=== PATIENT | female | born 1970 | race Caucasian/White ===

== ENCOUNTER 2019-09-12 00:20 | Outpatient (CLI) | payer OTHER, SELFPAY ==
[2019-09-12 18:56] LABS: SARS-CoV-2 RNA PCR Negative
== END 2019-09-12 00:21 | disposition home or self-care (01) ==
LOC: ANHCOVIDDT 00:20
PROVIDERS: PCP Internal Medicine; Visit Provider Internal Medicine Gastroenterology
DX: Z01.818 Encounter for other preprocedural examination (principal); Z11.59 Encounter for screening for other viral diseases; Z12.11 Encounter for screening for malignant neoplasm of colon
CPT/HCPCS: 87635; C9803; U0003

== ENCOUNTER 2019-09-14 01:33 | Day surgery (SDC) | payer OTHER, SELFPAY ==
[2019-09-06 13:45] VITALS: BMI 44.3
[2019-09-14 08:30] VITALS: BP 132/79; PULSE 82; RESP 18; TEMP 36.3; O2SAT 96
--- NOTE | 2019-09-14 08:32 | WPDANESEPPF ---
Anes - Initial Pre Proc Eval Procedure: Operation Date: 09/14/19 09:30 Proposed Procedures p Screening Colonoscopy - Sami Carter DO Date/Time: 09/14/19 08:32 Surgeon: Sami Carter DO Pre Op Diagnosis: hx colon polyps Patient Data Age: 49 Gender: F Height: 1.6 m Weight: 113.5 kg Allergies Allergy/AdvReac Type Severity Reaction Status Date / Time No Known Allergies Allergy Unknown Unverified 09/14/19 08:31 Home Medications Medication Instructions Recorded Confirmed Type levothyroxine See Rx Instructions .ROUTE .COMPLEX 09/06/19 09/14/19 History losartan 12.5 mg PO DAILY 09/06/19 09/14/19 History metformin 500 mg PO BID 09/06/19 09/06/19 History metoprolol succinate 25 mg PO BID 09/06/19 09/14/19 History bupropion HCl 300 mg PO QAM 09/14/19 09/14/19 History citalopram 40 mg PO DAILY 09/14/19 09/14/19 History glimepiride 4 mg PO DAILY 09/14/19 09/14/19 History Patient hx anesthesia problems: none Family hx anesthesia problems: none PMFSH Past Medical History Medical History (Updated 09/14/19 @ 08:34 by Chuck Whiteside MD) Anxiety Cardiac arrhythmia SVT - ABLATIONS X 2 Diabetes HTN (hypertension) Hypothyroidism Morbid obesity with BMI of 40.0-44.9, adult JOON (obstructive sleep apnea) Anes - Eval Final PreProcedure Day of Procedure 09/14/19 08:32 Patient weight: obese Heart: regular rate and rhythm Lungs: clear to auscultation and normal air movement Airway: Mallampati scale class II Neurological: alert and oriented Last oral intake: >/= 8 hours ASA classification: III Emergent: no Anesthetic plan: proceed Anesthesia type and monitoring: general GIVS Informed Consent: The patient's anesthetic plan and its attendant risks and benefits were discussed with the patient/family/POA. Questions were solicited and answers provided to the satisfaction of the patient/family/POA.
[2019-09-14] MEDS: LACTATED RINGERS 1,000 ML 150 ML IV CONT (08:53)
[2019-09-14 08:57] LABS: Glucose Point of Care 120 (65-105)
--- NOTE | 2019-09-14 09:13 | PM.IMHP ---
H&P: HPI History of Present Illness Chief complaint: hx colon polyps Narrative: Reason for visit colonoscopy. This very pleasant lady seen in consultation at the request the primary. Impression: This very pleasant lady had a recent colonoscopy about a year ago. Mild dysplasia was noted in the cecum. She is here for follow-up colonoscopy for screening and surveillance. For past medical history. Recommendation: Colonoscopy. History: This very pleasant lady is here for follow-up colonoscopy. Previous colonoscopy revealed dysplasia in the cecum. Colonoscopic examination, however revealed only minimal inflammation. the only GI symptoms the patient experiences is occasional emesis during times of urgent defecation. This usually occurs when she is at school. Physical examination: General: very pleasant patient in no acute distress. HEENT: Head was normocephalic sclerae is clear mouth without masses neck was supple. Heart: Rate rhythm regular without S3 or S4. Lungs: CTA. Abdomen: Soft with no guarding or rigidity. Bowel sounds were active. Neurologic: Cranial nerves 2 through 12 intact. No focal defects. No clonus. Musculoskeletal system: Revealed no joint tenderness or swelling no muscle atrophy. Extremities: Reveal no significant edema. Skin: Warm and dry with normal turgor. Mental status: intact. Patient is alert and oriented. Review of Systems Review of Systems: All systems reviewed & are unremarkable except as noted in HPI and below PMFSH Past Medical History Medical History (Updated 09/14/19 @ 09:12 by Sami Carter DO) Anxiety Cardiac arrhythmia SVT - ABLATIONS X 2 Diabetes HTN (hypertension) Hypothyroidism Morbid obesity with BMI of 40.0-44.9, adult JOON (obstructive sleep apnea) Surgical History Surgical History (Updated 09/14/19 @ 09:12 by Sami Carter DO) H/O cardiac radiofrequency ablation H/O colonoscopy H/O dilation and curettage H/O: hysterectomy Supracervical Previous section x 3 S/P carpal tunnel release Meds Home Medications and Allergies Home Medications Medication Instructions Recorded Confirmed Type levothyroxine See Rx Instructions .ROUTE .COMPLEX 09/06/19 09/14/19 History losartan 12.5 mg PO DAILY 09/06/19 09/14/19 History metformin 500 mg PO BID 09/06/19 09/14/19 History metoprolol succinate 25 mg PO BID 09/06/19 09/14/19 History bupropion HCl 300 mg PO QAM 09/14/19 09/14/19 History citalopram 40 mg PO DAILY 09/14/19 09/14/19 History glimepiride 4 mg PO DAILY 09/14/19 09/14/19 History Allergies Allergy/AdvReac Type Severity Reaction Status Date / Time No Known Allergies Allergy Unknown Unverified 09/14/19 08:31 Vital Signs Vital Signs - 24 hr 09/14/19 08:30 Temperature 36.3 C L Pulse Rate 82 Respiratory Rate 18 Blood Pressure 132/79 Pulse Oximetry 96
[2019-09-14 09:44] VITALS: BP 107/55; PULSE 75; RESP 15; O2SAT 97
[2019-09-14 09:54] VITALS: BP 113/66; PULSE 73; RESP 12; O2SAT 98
[2019-09-14 10:04] VITALS: BP 121/59; PULSE 73; RESP 15; O2SAT 99
== END 2019-09-14 10:19 | disposition home or self-care (01) ==
PROVIDERS: PCP Internal Medicine; Visit Provider Internal Medicine Gastroenterology
PROC: 0DJD8ZZ Inspection of Lower Intestinal Tract, Via Natural or Artificial Opening Endoscopic (ICD-10-PCS; CPT 45378; principal; 2019-09-14 09:30)
DX: Z12.11 Encounter for screening for malignant neoplasm of colon (principal); K52.89 Other specified noninfective gastroenteritis and colitis; Z86.010 Personal history of colon polyps; E11.9 Type 2 diabetes mellitus without complications; I10 Essential (primary) hypertension; E03.9 Hypothyroidism, unspecified; E66.01 Morbid (severe) obesity due to excess calories; Z68.41 Body mass index [BMI] 40.0-44.9, adult; G47.33 Obstructive sleep apnea (adult) (pediatric); F41.9 Anxiety disorder, unspecified; I47.1 Supraventricular tachycardia
CPT/HCPCS: 45380; 88305; J2001; J2704; J7120

== ENCOUNTER 2020-04-30 16:32 | Outpatient (RCR) | payer OTHER, SELFPAY ==
--- NOTE | 2020-04-30 17:53 | PTOPEVAL ---
Thank you for referring Sumi Brice to [facility].? The patient is scheduled to be seen for therapy? __3__x/week for 12 visits. Please review, sign, date and return this plan of care LYDIA. I agree with and certify that the following plan of care is medically necessary. Referring Physician Date Admitting Provider: Attending Provider: Lauri Llanes MD Referring Provider: *PT Outpatient Evaluation Start: 04/30/20 16:44 Freq: Status: Active Protocol: Document 04/30/20 16:45 ACR (Rec: 04/30/20 17:52 ACR [id number]) Therapy Assessment Status Assessment Status Assessment Status Evaluation Outpatient Past Medical History Neurological History Hx Neurological Disorders No Significant History Cardiovascular History Hx Cardiac Arrhythmia Yes: SVT Hx Hypertension Yes Hx Other Cardiac Disorders Yes: ABLATIONS X 2 Respiratory History Hx Sleep Apnea Yes Gastrointestinal History Hx Polyps Yes Genitourinary History Hx Genitourinary Disorders No Significant History Musculoskeletal History Hx Orthopedic Surgery Yes: BILATERAL CARPAL TUNNEL Hematological History Hx Hematological Disorders No Significant History Endocrine History Hx Diabetes Yes Hx Hypothyroidism Yes HEENT History Hx HEENT Disorders No Significant History Integumentary History Hx Skin Disorders No Significant History Reproductive History Hx Section Yes: X3 Hx Hysterectomy Yes Psychosocial History Hx Anxiety Yes Pain History History of Any Previous or Ongoing No Significant History Instance of Pain Anesthesia History Hx Post-Op Nausea/Vomiting Yes: DRY HEAVES Evaluation Information Problem Diagnosis L shoulder pain Onset 04/22/20 Subjective Information Patient states that she fell Query Text:As Reported By Patient/ forward last week, but her L Family arm progressively got in more pain throughout the day. She states that she is not sore anywhere else from the fall, except the L arm. She states the arm was originally in the most pain, but it has gotten a bit better and the pain is just in the shoulder. She states that reaching up and out, opening medicine containers, and lifting her arm to drive are some of the most difficult a
--- NOTE | 2020-06-04 17:58 | PTOPEVAL ---
Thank you for referring Sumi Brice to [facility].? The patient is scheduled to be seen for therapy? ____x/week for ___ weeks. Please review, sign, date and return this plan of care LYDIA. I agree with and certify that the following plan of care is medically necessary. Referring Physician Date Admitting Provider: Attending Provider: Lauri Llanes MD Referring Provider: *PT Outpatient Evaluation Start: 04/30/20 16:44 Freq: Status: Active Protocol: Document 06/04/20 16:58 ACR (Rec: 06/04/20 17:58 ACR [id number]) Therapy Assessment Status Assessment Status Assessment Status Discharge Outpatient Past Medical History Neurological History Hx Neurological Disorders No Significant History Cardiovascular History Hx Cardiac Arrhythmia Yes: SVT Hx Hypertension Yes Hx Other Cardiac Disorders Yes: ABLATIONS X 2 Respiratory History Hx Sleep Apnea Yes Gastrointestinal History Hx Polyps Yes Genitourinary History Hx Genitourinary Disorders No Significant History Musculoskeletal History Hx Orthopedic Surgery Yes: BILATERAL CARPAL TUNNEL Hematological History Hx Hematological Disorders No Significant History Endocrine History Hx Diabetes Yes Hx Hypothyroidism Yes HEENT History Hx HEENT Disorders No Significant History Integumentary History Hx Skin Disorders No Significant History Reproductive History Hx Section Yes: X3 Hx Hysterectomy Yes Psychosocial History Hx Anxiety Yes Pain History History of Any Previous or Ongoing No Significant History Instance of Pain Anesthesia History Hx Post-Op Nausea/Vomiting Yes: DRY HEAVES Evaluation Information Problem Diagnosis L shoulder pain Onset 04/22/20 Cause 25% disability on quick dash Subjective Information Patient states that she doesnt Query Text:As Reported By Patient/ have much pain when she is Family using her shoulder, but it bothers her when she goes out to the side or over her head. She states that since the beginning of therapy she feels she has improved 75-80%. 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
== END 2020-06-04 09:13 | disposition home or self-care (01) ==
LOC: CHSPT 16:32
PROVIDERS: PCP Internal Medicine; Visit Provider Internal Medicine
DX: M25.512 Pain in left shoulder (principal)
CPT/HCPCS: 97014; 97110; 97161; G0283

== ENCOUNTER 2020-06-24 11:00 | Outpatient (CLI) | payer OTHER, SELFPAY ==
--- NOTE | ~2020-06-24 | XR_ITS ---
EXAMINATION: XR shoulder LT min 2V DATE: 06/24/2020 11:36 INDICATION: Left shoulder pain. TECHNIQUE: 4 views of left shoulder were obtained. COMPARISON: None. FINDINGS: Bone alignment is normal. No fracture. There is mild osteoarthritis of glenohumeral joint a nd acromioclavicular joint. IMPRESSION: 1. Mild polyarticular osteoarthritis. Reviewed, dictated and finalized at location A.
== END 2020-06-24 11:01 | disposition home or self-care (01) ==
LOC: CHSLAB 11:02
PROVIDERS: PCP Internal Medicine; Visit Provider Internal Medicine
DX: M25.512 Pain in left shoulder (principal)
CPT/HCPCS: 73030

== ENCOUNTER 2020-08-31 08:15 | Outpatient (CLI) | payer OTHER, SELFPAY ==
--- NOTE | ~2020-08-31 | MR_ITS ---
EXAMINATION: MR shoulder LT wo con DATE: 08/31/2020 10:31 INDICATION: Left shoulder pain and limited range of motion TECHNIQUE: Magnetic resonance imaging (MRI) of the left shoulder was performed without intravenous co ntrast. Sequences included axial PD-weighted FS FSE, coronal oblique PD-weighted FS FSE, coronal obli que T2-weighted FS FSE, sagittal PD-weighted FS FSE, and sagittal T1-weighted SE. COMPARISON: None. FINDINGS: Coracoacromial arch: The acromion undersurface is curved in morphology (type II). The coracoacromial ligament is normal. M ild acromioclavicular osteoarthritis. Rotator cuff: Moderate supraspinatus and mild infraspinatus tendinopathy. Tiny intrasubstance tear at the superior facet footplate of the anterior supraspinatus tendon measuring 2 mm AP and involving no greater than one third of the tendon thickness. Subscapularis and teres minor tendons are normal. Normal rotator c uff muscle bulk and signal. Biceps tendon, glenoid labrum and glenohumeral cartilage: Long head of the biceps tendon is normal. Glenohumeral cartilage is normal. There is a tear of the david perior to posterior superior glenoid labrum beginning anteriorly at the 1:00 position and extending p osteriorly to the 10:00 position. Fluid: Physiologic amount of fluid in the glenohumeral joint and biceps tendon sheath. No loose osteochondra l bodies. There is fluid in the subacromial/subdeltoid bursa consistent with mild to moderate bursiti s. Bones: Bone alignment is normal. No fracture or pathologic marrow replacing process. IMPRESSION: 1. Moderate supraspinatus and mild infraspinatus tendinopathy with tiny mild partial-thickness intras ubstance tear at the insertion of the anterior supraspinatus tendon. 2. SLAP tear of the superior to posterior superior right labrum. 3. Mild to moderate subacromial/subdeltoid bursitis. Reviewed, dictated and finalized at location A. IMPRESSION: 1. Moderate supraspinatus and mild infraspinatus tendinopathy with tiny mild pa rtial-thickness intrasubstance tear at the insertion of the anterior supraspina tus tendon. 2. SLAP tear of the superior to posterior superior right labrum. 3. Mild to moderate subacromial/subdeltoid bursitis.
== END 2020-08-31 08:16 | disposition home or self-care (01) ==
PROVIDERS: PCP Internal Medicine; Visit Provider Orthopaedic Surgery
DX: S46.012A Strain of muscle(s) and tendon(s) of the rotator cuff of left shoulder, initial encounter (principal)
CPT/HCPCS: 73221

== ENCOUNTER 2020-10-07 10:10 | Outpatient (CLI) | payer OTHER, SELFPAY ==
--- NOTE | 2020-10-07 10:24 | ECG_ITS ---
Measurements Intervals [place] Rate: 85 P: 39 CO: 162 QRS: 4 QRSD: 100 T: -4 QT: 384 QTc: 458 Interpretive Statements SINUS RHYTHM DELAYED PRECORDIAL R/S TRANSITION CONSIDER INFERIOR INFARCT, AGE INDETERMINATE BORDERLINE T WAVE ABNORMALITY- ANTEROLATERAL LEADS ABNORMAL ECG Electronically Signed On 10-07-2020 13:36:33 CDT by Justin Marques D.O.
[2020-10-07 12:10] LABS: Anion Gap 11 mmol/L (8-16); Blood Urea Nitrogen 14 mg/dL (7-17); Calcium 9.7 mg/dL (8.4-10.2); Carbon Dioxide 25 mmol/L (22-30); Chloride 100 mmol/L (98-107); Estimated Glomerular Filt Rate > 60; Glucose 205 mg/dL (65-110); Potassium 4.3 mmol/L (3.4-5.0); Sodium 136 mmol/L (137-145)
== END 2020-10-07 10:11 | disposition home or self-care (01) ==
LOC: ANHSURGERY 10:13
PROVIDERS: Anesthesiology; PCP Internal Medicine; Visit Provider Orthopaedic Surgery
DX: Z01.818 Encounter for other preprocedural examination (principal); E11.9 Type 2 diabetes mellitus without complications; R94.31 Abnormal electrocardiogram [ECG] [EKG]
CPT/HCPCS: 36415; 80048; 93005

== ENCOUNTER 2020-10-10 01:49 | Day surgery (SDC) | payer OTHER, SELFPAY ==
[2020-10-02 14:06] VITALS: BMI 38.6
--- NOTE | 2020-10-03 14:58 | PM.IMHP ---
H&P: HPI History of Present Illness Date/Time: 10/03/20 14:58 Chief Complaint: Left shoulder pain Narrative: 50-year-old woman with injury to left shoulder April 22, 2020. Continues to have pain over the anterior aspect and difficulty with using the arm, lifting and overhead work. MRI demonstrates biceps and labral tears with inflammatory changes. Patient has failed conservative treatment and presents now for operative treatment. Review of Systems Constitutional: Constitutional: Denies fever(s) Eyes: Eyes: Denies blurry vision ENT: Reports Normal hearing present Cardiovascular: Cardiovascular: Denies chest pain and Denies dyspnea Respiratory: Respiratory: Denies dyspnea and Denies wheezing Gastrointestinal: Gastrointestinal: Denies abdominal pain Genitourinary: Genitourinary: Denies urinary urgency Musculoskeletal: Musculoskeletal: Reports as per HPI and Denies numbness Integumentary/Breasts: Skin/Breast: Denies changing lesions and Denies sores Neurologic: Reports Normal hearing present, Denies behavioral changes, Denies confusion, Denies numbness and Denies convulsions Psychiatric: Psychiatric: Denies behavioral changes, Denies confusion and Denies hallucinations Endocrine: Endocrine: Denies heat intolerance Hematologic/Lymphatic: Hematologic/Lymphatic: Denies easy bleeding Allergic/Immunologic: Allergic/Immunologic: Denies wheezing PMFSH Past Medical History Medical History Abnormality of heart beat Anxiety Cardiac arrhythmia SVT - ABLATIONS X 2 Chills COVID-19 Depression Diabetes Fever HTN (hypertension) Hypothyroidism Impingement syndrome, shoulder, left Labral tear of long head of left biceps tendon Morbid obesity with BMI of 40.0-44.9, adult JOON (obstructive sleep apnea) PVC (premature ventricular contraction) Rotator cuff tear, left Strain of left shoulder Wears glasses Surgical History Surgical History H/O cardiac radiofrequency ablation H/O colonoscopy H/O dilation and curettage H/O: hysterectomy Supracervical Previous section x 3 S/P carpal tunnel release Family History Family History Mother Hypertension Depression COPD (chronic obstructive pulmonary disease) Kidney stones Arthritis High cholesterol Father Heart disease Diabetes mellitus Pancreatic cancer High cholesterol Other Asthma Social History Social History Smoking status: Never smoker Second hand tobacco smoke exposure: No Alcohol intake: never Substance use: never Substance use type: does not use Gender identity (if verbalized by the patient): Female Spiritual care concerns: No Meds Home Medications and Allergies Home Medications Medication Instructions Recorded Confirmed Type levothyroxine See Rx Instructions .ROUTE .COMPLEX 09/06/19 10/02/20 History losartan 12.5 mg PO DAILY 09/06/19 10/02/20 History metformin 1,000 mg PO BID 09/06/19 10/02/20 History bupropion HCl 300 mg PO HS 09/14/19 10/02/20 History citalopram 40 mg PO HS 09/14/19 10/02/20 History melatonin 10 mg PO HS PRN 10/02/20 10/02/20 History Allergies Allergy/AdvReac Type Severity Reaction Status Date / Time No Known Allergies Allergy Unknown Verified 10/02/20 14:37 Exam Const: General: healthy appearing; No in distress or confusion Orientation/consciousness: oriented to person, oriented to place, oriented to time and No confusion HENMT: Head: normal to inspection, normocephalic and atraumatic Eyes: Conjunctivae: conjunctivae normal Sclera: sclerae normal Neck: Neck: supple and nontender Resp: Effort & Inspection: normal respiratory effort and no audible wheezes Cardio: Rate: regular rate Rhythm: regular rhythm Skin: General skin exam: no rashes or lesi
--- NOTE | 2020-10-09 15:03 | WPDANESEPPF ---
Anes - Initial Pre Proc Eval Procedure: Operation Date: 10/10/20 11:30 Proposed Procedures p Left Shoulder Arthroscopy with Debridement, Bicep Tenodesis, Acromioplasty - Farhna Vargas MD Date/Time: 10/09/20 15:03 Surgeon: Farhan Vargas MD Pre Op Diagnosis: left shoulder pain, biceps tendonitis Patient Data Age: 50 Gender: F Height: 1.6 m Weight: 98.88 kg Allergies Allergy/AdvReac Type Severity Reaction Status Date / Time No Known Allergies Allergy Unknown Verified 10/10/20 10:13 Home Medications Medication Instructions Recorded Confirmed Type levothyroxine See Rx Instructions .ROUTE .COMPLEX 09/06/19 10/10/20 History losartan 12.5 mg PO DAILY 09/06/19 10/10/20 History metformin 1,000 mg PO BID 09/06/19 10/10/20 History bupropion HCl 300 mg PO HS 09/14/19 10/10/20 History citalopram 40 mg PO HS 09/14/19 10/10/20 History melatonin 10 mg PO HS PRN 10/02/20 10/10/20 History hydrocodone-acetaminophen 1 tablet PO Q6H PRN #30 tablet 10/10/20 Rx ondansetron 8 mg PO Q8H PRN #10 tablet 10/10/20 Rx Patient hx anesthesia problems: none Family hx anesthesia problems: none PMFSH Past Medical History Medical History Abnormality of heart beat Anxiety Cardiac arrhythmia SVT - ABLATIONS X 2 Chills COVID-19 Depression Diabetes Fever HTN (hypertension) Hypothyroidism Impingement syndrome, shoulder, left Labral tear of long head of left biceps tendon Morbid obesity with BMI of 40.0-44.9, adult JOON (obstructive sleep apnea) PVC (premature ventricular contraction) Rotator cuff tear, left Strain of left shoulder Wears glasses Surgical History Surgical History H/O cardiac radiofrequency ablation H/O colonoscopy H/O dilation and curettage H/O: hysterectomy Supracervical Previous section x 3 S/P carpal tunnel release Family History Family History Mother Hypertension Depression COPD (chronic obstructive pulmonary disease) Kidney stones Arthritis High cholesterol Father Heart disease Diabetes mellitus Pancreatic cancer High cholesterol Other Asthma Social History Social History Second hand tobacco smoke exposure: No Alcohol intake: never Substance use: never Substance use type: does not use Living arrangements: with family Gender identity (if verbalized by the patient): Female Spiritual care concerns: No Anes - Eval Final PreProcedure Day of Procedure 10/09/20 15:03 Patient weight: obese Heart: regular rate and rhythm Lungs: clear to auscultation and normal air movement Airway: Mallampati scale class II Neurological: alert and oriented Last oral intake: >/= 8 hours ASA classification: III Emergent: no Anesthetic plan: proceed Anesthesia type and monitoring: general ETT and standard monitoring Informed Consent: The patient's anesthetic plan and its attendant risks and benefits were discussed with the patient/family/POA. Questions were solicited and answers provided to the satisfaction of the patient/family/POA.
[2020-10-10] VITALS (12 sets, daily range): BP systolic 112–186; BP diastolic 46–102; PULSE 88–100; RESP 12–20; TEMP 36.3–36.7; O2SAT 92–100
--- NOTE | 2020-10-10 07:01 | WPDHPUPDATE1 ---
History and Physical Update Update Date/Time: 10/10/20 07:01 History and Physical has been reviewed, including an updated exam of the patient. There are NO changes in the patient's condition. Risks, benefits, and alternatives have been discussed and questions answered. Patient agrees to proceed with procedure.
--- NOTE | 2020-10-10 10:29 | WPDANESPNB ---
Anes - Peripheral Nerve Block Date/Time: 10/10/20 10:29 I have discussed with the patient/family/POA the placement of a peripheral nerve block for post-operative pain management, including associated risks, benefits, complications, and side effects. Alternative methods of post-operative analgesia were detailed. Questions were solicited and answers provided to the satisfaction of the patient/family/POA. Time-Out: A pre-procedural Time-Out was completed immediately before starting the procedure and confirmed: Patient Identification, Site, Procedure, Patient Position and the Availability of Requisite Equipment. Clinical Indications: Acute post-operative pain management requested by the operative surgeon. Nerve Block Insertion Note Anes-nerve block: interscalene left Patient position: supine Skin prep: chlorhexidine Needle: 22 gauge, stimulating, insulated echogenic needle. Needle length: 50 mm Technique: ultrasound Injectate: bupivacaine 0.5% with epi 5 mcg/ml (30cc- no epi) Observations: tolerated well Complications: none Procedure start time:: 1106 Procedure end time:: 1111
[2020-10-10] MEDS: LACTATED RINGERS 1,000 ML 30 ML IV CONT ×2 (10:50→13:25)
[2020-10-10] MEDS: KETOROLAC 15 MG/ML VIAL (*BKC) IV PUSH (10:51)
[2020-10-10] MEDS: ACETAMINOPHEN 500 MG TABLET 1000 MG PO (10:51)
[2020-10-10] MEDS: ceFAZolin 2 GM/D5W 50 ML 2 GM/50 ML BAG IVPB (11:12)
[2020-10-10] MEDS: BUPIVACAINE/EPINEPHRINE 0.5% 30 ML VIAL 10 ML INFILTRATE (12:42)
--- NOTE | 2020-10-10 13:41 | W.PM.PROC2 ---
Procedure Note - Detailed Date of Procedure 10/10/20 Pre-op Diagnosis left shoulder pain, biceps tendonitis Post-op Diagnosis same Procedure Performed Left shoulder arthroscopy with extensive debridement, acromioplasty, biceps tenodesis. 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 MRI shows partial tear of the biceps tendon and the labrum as well as inflammatory changes and subacromial bursitis. She has failed conservative treatment with physical therapy, home exercises, anti-inflammatories. She presents now for operative treatment. Findings Left shoulder shows grade 1-2 chondromalacia of the humeral head and grade 1 chondromalacia of the glenoid articular surface. Partial tear of the biceps tendon anchor at the labrum. Full tear of the superior labrum with degenerative change. Inflammatory changes with synovitis and capsulitis. Partial articular sided fraying of the insertion of the rotator cuff. Intact rotator cuff footprint. Inflammatory tissue subacromial bursa with subacromial spur. Description of Procedure What was done: Patient identified in the preoperative holding. Informed consent given. Operative extremity marked. Patient received intravenous antibiotics. Patient brought to the operating room where underwent general anesthetic by anesthesia team. Positioned Beach chair position operating room table. careful securing of the head and neck area performed. Padding for the bony prominences ensured. Time-out performed confirming the patient, site of the surgery and the plan. Standard arthroscopy portals made for the left shoulder. 18 gauge spinal needle used for the posterior portal location with infiltration of the shoulder joint with normal saline. Eleven blade knife used to incise the skin and blunt penetration of the capsule. Camera and inflow started through this portal and the below findings were noted. Anterior portal established with 18 gauge spinal needle for positioning followed by an 11 blade knife for the skin and blunt penetration of the capsule. 4.7 mm shaver introduced and a extensive debridement of the shoulder joint was performed including the articular surface of the glenoid and the humeral head, debridement of the labrum as well as the synovial tissue that was hypertrophic and the undersurface of the rotator cuff insertion. The debridement was completed with the arthroscopic Wand. The Wand was then used to release the biceps tendon the anchor from the labrum. Irrigation ran through the joint and suctioned out. Instruments removed and skin closed with 3 Monocryl interrupted subcuticular stitches and glue. A camera was then positioned in the subacromial space. Direct lateral portal made with 11 blade knife for the skin and blunt penetration of the soft tissue. Bursectomy performed. Shaver then used to resect the inferior aspect of the acromion including the acromial spur. 2 to 3 mm of bone was resected. Bleeding points were coagulated and irrigation run through the subacromial space and suctioned out. Portals closed with 3 Monocryl interrupted suture and glue. Biceps tenodesis was then performed. Longitudinal incision made in the axillary fold with a 10 blade knife. Hemostasis controlled electrocautery. Careful dissection carried down to the pectoralis which was retracted superiorly. The short head of the biceps was retracted medially which allowed exposure of the proximal humerus and the biceps tendon. Biceps tendon was identified and brought out of the wound. A whip stitch was placed into this. A 3.2 mm drill hole was then placed in the proximal humerus and the anchor but was placed into the hole and secured with the whip stitch placed through the button. Good fixation of the tendon and good tension was noted. Wound thoroughly irrigated and subcutaneous tissue closed with 3 Monocryl interrupted suture. Skin approxima
[2020-10-10 13:52] LABS: Glucose Point of Care 163 mg/dl (65-105)
== END 2020-10-10 16:04 | disposition home or self-care (01) ==
PROVIDERS: PCP Internal Medicine; Visit Provider Orthopaedic Surgery
PROC: (CPT 29805; principal; 2020-10-10 11:30)
DX: S46.112A Strain of muscle, fascia and tendon of long head of biceps, left arm, initial encounter (principal); S46.912A Strain of unspecified muscle, fascia and tendon at shoulder and upper arm level, left arm, initial encounter; M75.42 Impingement syndrome of left shoulder; M75.52 Bursitis of left shoulder; M94.212 Chondromalacia, left shoulder; M65.812 Other synovitis and tenosynovitis, left shoulder; X58.XXXA Exposure to other specified factors, initial encounter; G89.18 Other acute postprocedural pain; I10 Essential (primary) hypertension; E11.9 Type 2 diabetes mellitus without complications; E03.9 Hypothyroidism, unspecified; G47.33 Obstructive sleep apnea (adult) (pediatric); F41.8 Other specified anxiety disorders; Z86.16 Personal history of COVID-19; Z79.84 Long term (current) use of oral hypoglycemic drugs; E66.9 Obesity, unspecified; Z68.38 Body mass index [BMI] 38.0-38.9, adult
CPT/HCPCS: 64415; 29823; 29828; 82948; A4565; A9270; J0690; J1100; J1885; J2250; J2405; J2704; J2710; J3010; J7120

== ENCOUNTER 2020-10-21 08:06 | Outpatient (CLI) | payer OTHER, SELFPAY ==
--- NOTE | ~2020-10-21 | XR_ITS ---
XR shoulder LT min 2V DATE: 10/21/2020 08:27 INDICATION: Limited range of motion of left shoulder TECHNIQUE: 3 views COMPARISON: 08/31/2020 left shoulder MR examination /07/2020 left shoulder FINDINGS: There is diffuse osteopenia. Normal alignment at the acromioclavicular and glenohumeral joints with minimal osteoarthritis at the glenohumeral joint. No fracture, dislocation, periosteal reaction or bone destruction or abnormal sof t tissue calcification. IMPRESSION: Osteopenia Mild degenerative change Reviewed, dictated and finalized at location B.
== END 2020-10-21 08:07 | disposition home or self-care (01) ==
LOC: CHSIMG 08:09
PROVIDERS: PCP Internal Medicine; Visit Provider Orthopaedic Surgery
DX: Z47.89 Encounter for other orthopedic aftercare (principal)
CPT/HCPCS: 73030

== ENCOUNTER 2020-10-28 09:56 | Outpatient (RCR) | payer OTHER, SELFPAY ==
--- NOTE | 2020-10-28 11:02 | PTOPEVAL ---
Thank you for referring Sumi Brice to [facility].? The patient is scheduled to be seen for therapy? ____x/week for ___ weeks. Please review, sign, date and return this plan of care LYDIA. I agree with and certify that the following plan of care is medically necessary. Referring Physician Date Admitting Provider: Attending Provider: Farhan Vargas MD Referring Provider: *PT Outpatient Evaluation Start: 10/28/20 09:29 Freq: Status: Active Protocol: Document 10/28/20 09:55 ACR (Rec: 10/28/20 11:02 ACR [id number]) Therapy Assessment Status Assessment Status Assessment Status Evaluation Outpatient Past Medical History Neurological History Hx Neurological Disorders No Significant History Cardiovascular History Hx Cardiac Arrhythmia Yes: SVT Hx Hypertension Yes Hx Other Cardiac Disorders Yes: ABLATIONS X 2 Respiratory History Hx Other Respiratory Disorders Yes: Covid positive in 2019 Gastrointestinal History Hx Gastroesophageal Reflux Disease Yes Genitourinary History Hx Genitourinary Disorders No Significant History Musculoskeletal History Hx Other Musculoskeletal Disorders Yes: Left shoulder pain Hematological History Hx Hematological Disorders No Significant History Endocrine History Hx Diabetes Yes Hx Hypothyroidism Yes HEENT History Hx HEENT Disorders No Significant History Integumentary History Hx Skin Disorders No Significant History Reproductive History Hx Section Yes: X3 Hx Hysterectomy Yes Psychosocial History Hx Anxiety Yes Pain History History of Any Previous or Ongoing No Significant History Instance of Pain Anesthesia History Hx Post-Op Nausea/Vomiting Yes: DRY HEAVES Evaluation Information Problem Diagnosis L shoulder bicep tenodesis Onset 10/10/20 Subjective Information Patient states that she Query Text:As Reported By Patient/ underwent a bicep tenodesis on Family 10/10/20 and she got some arthritis cleaned out as well. She states she is only taking ibprofen for the pain, and occasionally oxydone if the pain is bad. She does not have to wear the sling, but occasionally does if it is hurting. The patient states the pain is keeping her up at night. Patient states that she has difficulty with anything using her
--- NOTE | 2020-12-12 18:05 | PTOPEVAL ---
Thank you for referring Sumi Brice to [facility].? The patient is scheduled to be seen for therapy? ____x/week for ___ weeks. Please review, sign, date and return this plan of care LYDIA. I agree with and certify that the following plan of care is medically necessary. Referring Physician Date Admitting Provider: Attending Provider: Farhan Vargas MD Referring Provider: *PT Outpatient Evaluation Start: 10/28/20 09:29 Freq: Status: Active Protocol: Document 12/12/20 17:00 ACR (Rec: 12/12/20 17:57 ACR [id number]) Therapy Assessment Status Assessment Status Assessment Status Discharge Outpatient Past Medical History Neurological History Hx Neurological Disorders No Significant History Cardiovascular History Hx Cardiac Arrhythmia Yes: SVT Hx Hypertension Yes Hx Other Cardiac Disorders Yes: ABLATIONS X 2 Respiratory History Hx Other Respiratory Disorders Yes: Covid positive in 2019 Gastrointestinal History Hx Gastroesophageal Reflux Disease Yes Genitourinary History Hx Genitourinary Disorders No Significant History Musculoskeletal History Hx Other Musculoskeletal Disorders Yes: Left shoulder pain Hematological History Hx Hematological Disorders No Significant History Endocrine History Hx Diabetes Yes Hx Hypothyroidism Yes HEENT History Hx HEENT Disorders No Significant History Integumentary History Hx Skin Disorders No Significant History Reproductive History Hx Section Yes: X3 Psychosocial History Hx Anxiety Yes Pain History History of Any Previous or Ongoing No Significant History Instance of Pain Anesthesia History Hx Post-Op Nausea/Vomiting Yes: DRY HEAVES Pain Assessment Timing of Pain Assessment Timing of Pain Assessment Assessment Pain Scale Pain Scale Used Numeric (1 - 10) Self Report Pain Assessment Left Shoulder(s) Reported Pain Level 0 Greatest Pain Intensity 2 Pain Score Pain Score 0: Self Report Upper Extremity Range of Motion Scapular/ Shoulder Range of Motion Left Shoulder Flexion - Active 154 Shoulder Abduction - Active 135 Shoulder Medial Rotation - Active 66 Shoulder Lateral Rotation - Active 74 Upper Extremity Muscle Strength Testing Scapular/Shoulder Right Shoulder Flexion Strength 5 Normal Shoulder Abduction Strength 5 Normal Shoulder Medial Rotation Strength 5 Normal Shoulder Lateral Rotation Strength 4+ Good + Left Shoulder Flexion Strength 4+ Good + Shoulder Abduction Strength 5 Normal Shoulder Medial Rotation Strength 5 Normal Shoulder Lateral Rotation Strength 4+ Good + General Exercise General Exercises Exercise Description
== END 2020-12-12 09:29 | disposition home or self-care (01) ==
LOC: CHSPT 09:56
PROVIDERS: Visit Provider Orthopaedic Surgery
DX: M75.92 Shoulder lesion, unspecified, left shoulder (principal)
CPT/HCPCS: 97014; 97110; 97161; G0283

== ENCOUNTER 2021-05-23 13:53 | Outpatient (CLI) | payer OTHER, SELFPAY ==
--- NOTE | ~2021-05-23 | XR_ITS ---
XR ankle RT min 3V, XR foot RT min 3V 05/23/2021 15:20 Indication: Right ankle pain Procedure: 4 views right ankle Comparison: 05/23/2021 Findings: There is corticated ossific density distal to the fibula which may represent an accessory o ssicle or related to remote trauma. There are degenerative calcaneal enthesophytes. No acute fracture , subluxation or dislocation. Ankle mortise intact. Talar dome is normal. Impression: 1: No acute fracture. Reviewed, dictated and finalized at location A. NGUAL RECEPTIONIST Impression: 1: No acute fracture. Impression: 1: No acute fracture.
--- NOTE | ~2021-05-23 | MM_ITS ---
EXAMINATION: MM screening [facility] BI w bridget HISTORY: Screening mammogram TECHNIQUE: Craniocaudal and mediolateral oblique 3-D tomosynthesis images were obtained and synthetic 2-D images were generated. CAD analysis was submitted and interpreted. COMPARISON: 08/30/2017, 12/19/2015 BREAST PARENCHYMAL COMPOSITION: There are scattered areas of fibroglandular density. FINDINGS: There is no evidence of suspicious mass, calcification, or architectural distortion to sugg est malignancy in either breast. There has been no suspicious interval change. IMPRESSION: 1. No mammographic evidence of malignancy. 2. Recommend routine screening mammography in one year. BI-RADS Category 1: Negative Reviewed, dictated and finalized at location A. NGER MACHINE TENDER
== END 2021-05-23 13:54 | disposition home or self-care (01) ==
PROVIDERS: PCP Internal Medicine; Visit Provider Internal Medicine
DX: Z12.31 Encounter for screening mammogram for malignant neoplasm of breast (principal); M25.571 Pain in right ankle and joints of right foot; M79.671 Pain in right foot
CPT/HCPCS: 73610; 73630; 77063; 77067

== ENCOUNTER 2021-11-11 16:03 | Outpatient (CLI) | payer OTHER, SELFPAY ==
--- NOTE | 2021-12-09 16:29 | WPDHOLTEREM ---
Holter/Event Monitor Holter/Event Monitor Date of procedure: 11/11/21 Holter/Event Procedure: Event Monitor Indications: Palpitations Conclusion: 1. 19 days event monitor between 11/11/21-12/09/21. There are 402 available transmissions for analysis. 2. Underlying rhythm is sinus rhythm. HR range 52-120 bpm; average HR 83 bpm. 3. There are occasional premature supraventricular complexes with total burden of <1%. No supraventricular tachycardia. 4. There are occasional premature ventricular complexes with total burden of <1%. No ventricular tachycardia. 5. No significant pauses greater than 2 seconds. 6. Patient reports 380 episodes of symptoms of skipped beat, dizziness, lightheadedness, shortness of breath, symptoms other than listed which demonstrate sinus rhythm, HR range 70-109 bpm with 88 episodes having PVC's and 1 episode with PAC.
== END 2021-11-11 16:04 | disposition home or self-care (01) ==
LOC: CHSCARD 16:07
PROVIDERS: PCP Internal Medicine; Visit Provider Internal Medicine
DX: I47.1 Supraventricular tachycardia (principal)
CPT/HCPCS: 93270

== ENCOUNTER 2022-04-21 11:37 | Outpatient (CLI) | payer OTHER, SELFPAY ==
--- NOTE | ~2022-04-21 | XR_ITS ---
EXAMINATION: XR ribs LT 2V INDICATION: Left-sided rib pain TECHNIQUE: 3 views of the left ribs were obtained. COMPARISON: 12/15/2018 FINDINGS: No displaced rib fracture is identified. The visualized portions of the lungs are free of a cute opacities. No pleural effusion or pneumothorax. IMPRESSION: 1. No acute cardiopulmonary abnormality or evidence of displaced rib fracture. Reviewed, dictated and finalized at location L. ZIPPER TRIMMER
== END 2022-04-21 11:38 | disposition home or self-care (01) ==
LOC: CHSIMG 11:39
PROVIDERS: PCP Internal Medicine; Visit Provider Nurse Practitioner Family
DX: R07.81 Pleurodynia (principal)
CPT/HCPCS: 71100

== ENCOUNTER 2023-05-21 12:55 | Outpatient (CLI) | payer OTHER, SELFPAY ==
--- NOTE | ~2023-05-21 | MM_ITS ---
EXAMINATION: MM screening [facility] BI w bridget HISTORY: Screening TECHNIQUE: Craniocaudal and mediolateral oblique 3-D tomosynthesis images were obtained and synthetic 2-D images were generated. CAD analysis was submitted and interpreted. COMPARISON: Comparison to multiple prior studies sequentially, with oldest reviewed study dated 12/18. BREAST PARENCHYMAL COMPOSITION: Not dense: There are scattered areas of fibroglandular density. FINDINGS: There is no evidence of suspicious mass, calcification, or architectural distortion to sugg est malignancy in either breast. There has been no suspicious interval change. IMPRESSION: 1. No mammographic evidence of malignancy. 2. Recommend routine screening mammography in one year. BI-RADS Category 1: Negative Reviewed, dictated and finalized at location A. ITY METER OPERATOR
--- NOTE | ~2023-05-21 | DEXA_ITS ---
Bone Density Report Name: JARON HOLGUIN Age: 53 Sex: Female Ethnicity: White Date of : 1970 Indication: hyperparathyroidism; prior fracture; hysterectomy; postmenopausal Referring Provider: Lauri Llanes Study: Bone densitometry was performed. Exam Date: May 21, 2023 Accession number: [id number] Bone Density: Region BMD T-score Z-score Classification AP Spine(L1-L4) 1.036 -0.1 1.0 Normal Femoral Neck (Left) 0.758 -0.8 0.2 Normal Total Hip (Left) 0.963 0.2 0.9 Normal Femoral Neck (Right) 0.736 -1.0 0.1 Normal Total Hip (Right) 0.931 -0.1 0.6 Normal Femoral Neck Mean 0.747 -0.9 0.2 Normal Total Hip Mean 0.947 0.0 0.7 Normal World Health Organization criteria for BMD impression classify patients as: Normal (T-score at or above -1.0), Osteopenia (T-score between -1.0 and -2.5), or Osteoporosis (T-score at or below -2.5). 10-year Fracture Risk: FRAX not reported because: All T-scores for Spine Total, Hip Total, Femoral Neck at or above -1.0 Clinical Information Provided by Patient: Has had a low trauma fracture Has the following medical conditions: Hyperparathyroidism, Hysterectomy Patient maximum height was 63.5 Menopause Age: 47 No regular weight bearing exercise Does not regularly consume dairy products Drinks caffeinated beverages Onset of menses at age 11 Number of children 3 Missed period for more than 6 months in a row Impression: The patient has normal bone mass. The patient has risk factors, including: previous fracture. Discussion: BONE DENSITY IS ABOVE THE MINIMUM DESIRABLE LEVEL AT ALL SKELETAL SITES TESTED. This patient?s bone mineral density is above the minimum desirable level (T-score -1.0 or better) at all sites measured. The patient should follow a healthful lifestyle (good nutrition with adequate calcium and vitamin D, and appropriate weight-bearing exercise). Follow-Up: Consider repeating this study in 5 years or sooner if there is some new clinical indication. Reported by: Dr. Pedrito Roberts on 05/21/2023 1:26:00 PM. Reviewed, dictated and finalized at location [facility]
== END 2023-05-21 12:56 | disposition home or self-care (01) ==
LOC: CHSIMG 12:56
PROVIDERS: PCP Internal Medicine; Visit Provider Internal Medicine
DX: Z12.31 Encounter for screening mammogram for malignant neoplasm of breast (principal); Z78.0 Asymptomatic menopausal state
CPT/HCPCS: 77063; 77067; 77080

== ENCOUNTER 2023-08-30 12:19 | Outpatient (CLI) | payer OTHER, SELFPAY ==
--- NOTE | ~2023-08-30 | US_ITS ---
US retroperitoneal comp 08/30/2023 12:39 Procedure: Realtime transabdominal ultrasound of the kidneys and bladder. Indication: Incontinence. UTI. Hematuria. Comparison: No prior studies for comparison. Findings: Renal echotexture is normal bilaterally without hydronephrosis, contour deforming mass or r enal calculus. The right kidney measures 8.7 cm and left kidney measures 11.2 cm. Bladder within nor mal limits. Impression: 1: Unremarkable renal ultrasound. No stones, masses or hydronephrosis. Reviewed, dictated and finalized at location B. Impression: 1: Unremarkable renal ultrasound. No stones, masses or hydronephrosis.
== END 2023-08-30 12:20 | disposition home or self-care (01) ==
PROVIDERS: PCP Internal Medicine; Visit Provider Internal Medicine
DX: R31.9 Hematuria, unspecified (principal); R32 Unspecified urinary incontinence
CPT/HCPCS: 76770

== ENCOUNTER 2024-09-29 10:23 | Outpatient (CLI) | payer OTHER, SELFPAY ==
--- NOTE | ~2024-09-29 | MM_ITS ---
EXAMINATION: MM screening [facility] w bridget HISTORY: Screening mammogram TECHNIQUE: Craniocaudal and mediolateral oblique 3-D tomosynthesis images were obtained and synthetic 2-D images were generated. CAD analysis was submitted and interpreted. COMPARISON: 05/21/2023, 05/23/2021 BREAST PARENCHYMAL COMPOSITION:Not Dense. There are scattered areas of fibroglandular density. FINDINGS: No suspicious mass, calcification, or architectural distortion are identified in either edmundo ast to suggest malignancy. There has been no suspicious interval change. IMPRESSION: No mammographic evidence of malignancy. Recommend routine screening mammography in one year. BI-RADS Category 1: Negative Reviewed, dictated and finalized at location .
--- OUTSIDE RECORDS SUMMARY | 2024-09-29 10:26 | XMS_ITS | Clinical Summary ---
Author Organization [facility] Address [address] [place] [address] Care Team Providers Care Academic Director Name Role Phone Gonzalo Martin MD Primary Care Provider [phone] Source Comments [facility],non-owned Affiliates and Associated Physician Practices is amultiple site organization consisting of ambulatory clinics and hospital sitesin [place], [place], [place] and [place]. This disclosure is being madepursuant to the Care Everywhere program and may not contain all information available regarding this patient. Last updated 17.[facility] [place] Social History Tobacco Use Types Packs/Day Years Used Date Smoking Tobacco: Never Assessed Comments Unknown Sex and Gender Information Value Date Recorded Sex Assigned at Not on file Legal Sex Female 6:23 AM ACADEMIC DIRECTOR Gender Identity Not on file Sexual Orientation Not on file Plan of Treatment Health Maintenance Due Date Last Done Comments COLOGUARD (AGES 45-75) - COL ON CA SCREENING 1968 COLON MONITORING 1968 COLONOSCOPY - COLON CA SCREENING 1968 CT COLONOGRAPHY - COLON CA SCREENING 1968 Colorectal Cancer Screening 1968 FIT - COLON CA SCREENING 1968 FLEX SIG - COLON CA SCREENING 1968 LIPID TESTING 1968 MAMMOGRAM 1968 HIV SCREENING 02/03/1983 HEPATITIS C SCREENING 01/30/1986 DTAP/TDAP/TD VACCINES (1 - Tdap) 02/03/1987 HEPATITIS B VACCINE (1 of 3 - 19+ 3-dose series) 02/03/1987 PNEUMOCOCCAL VACCINE 50+ (1 of 1 - PCV) 02/03/2018 ZOSTER VACCINE (1 of 2) 02/03/2018 COVID-19 VACCINE (1 - 2023-2 5 season) 2023 DEPRESSION SCREENING 03/22/2024 INFLUENZA VACCINE (#1) 2024 HIB VACCINE Aged Out No longer eligi ble based on patient's age to complete this topic HPV VACCINE Aged Out No longer eligi ble based on patient's age to complete this topic MENINGOCOCCAL (Group B) VACC INE SHARED DECISION-MAKING Aged Out No longer eligibl e based on patient's age to complete this topic MENINGOCOCCAL GROUPS A/C/Y/W VACCINE Aged Out No longer eligible b ased on patient's age to complete this topic Insurance [facility] Care Teams Academic Director Relationship Specialty Start Date End Date Gonzalo Martin MD [address] [place] [address] PCP - General 10/24/18
--- OUTSIDE RECORDS SUMMARY | 2024-09-29 10:26 | XMS_ITS | Clinical Summary ---
Author Organization [facility] Address [address] [address] Phone Care Team Providers Care Government Program Manager Name Role Phone Lauri Llanes MD Primary Care Provider [phone] Social History Tobacco Use Types Packs/Day Years Used Date Smoking Tobacco: Never Assessed Comments Unknown Sex and Gender Information Value Date Recorded Sex Assigned at Not on file Legal Sex Female 1:33 PM CDT Gender Identity Not on file Sexual Orientation Not on file Plan of Treatment Health Maintenance Due Date Last Done Comments Hepatitis C Virus (HCV) Screening 1970 TdaP Immunization 1968 Hepatitis B Immunization (1 of 3 - 19+ 3-dose series) 02/03/1987 Pap Smear 02/03/1989 Cervical Cancer Screening (CCS) 02/03/1998 HPV/Cotest 02/03/1998 Cologuard 02/03/2018 Immunochemical Fecal Occult Blood 02/03/2018 Mammogram 02/03/2018 Pneumococcal Immunization (5 0+ years) (1 of 1 - PCV) 02/03/2018 Zoster Immunization (1 of 2) 02/03/2018 Influenza Immunization (#1) 2023 SARS-COV-2 Immunization ( - season) 2023 Colonoscopy 09/13/2024 09/14/2019, 10/14/2018 Colorectal Cancer Screening 09/13/2024 Respiratory Syncytial Virus (RSV) Immunization (Adult) (1 - 1-dose 75+ series) 02/03/2043 Meningococcal Immunization (ACWY) Aged Out No longer eligible b ased on patient's age to complete this topic Pneumococcal Immunization Combined Aged Out No longer eligible b ased on patient's age to complete this topic Rotavirus Immunization Aged Out No lo nger eligible based on patient's age to complete this topic Procedures Procedure Name Priority Date/Time Associated Diagnosis Comments COLONOSCOPY Routine 09/14/2019 from Last 3 Months or Most Recently Relevant to Health Maintenance Results * COLONOSCOPY (09/14/2019) Sami Carter DO PROCEDURE/MINOR SURGICAL ORDERA BLES Final Result from Last 3 Months or Most Recently Relevant to Health Maintenance Care Teams Government Program Manager Relationship Specialty Start Date End Date Lauri Llanes MD [address] [place] [address] PCP - General Internal Medicine 09/18/19
--- OUTSIDE RECORDS SUMMARY | 2024-09-29 10:27 | XMS_ITS | Clinical Summary ---
Author Organization [facility] Address [address] [address] [place] [address] Care Team Providers Care Production Planner Scheduler Name Role Phone Lauri Llanes MD Primary Care Provider [phone] Allergies No known active allergies Medications levothyroxine (SYNTHROID, LEVOTHROID) 200 mcg tablet take 1 tablet by oral route every day 0 0 5 Active insulin NPH-insulin regular (HumuLIN 70/30) 100 unit/mL (70-30) injection inject by subcutaneous route as per insulin protocol 0 vial 0 5 Active Additional Information Patient not taking.Reported on 11/21/2021 cetirizine (ZyrTEC) 10 mg tablet take 1 tablet by oral route every day 0 0 5 Active fluocinonide (LIDEX) 0.05 % gel apply by topical route 2 times every day to the affected area(s) 0 0 5 Active Additional Information Patient not taking.Reported on 11/21/2021 metFORMIN (GLUCOPHAGE) 500 mg tablet take 1 tablet by oral route 2 times every day with morning and evening meals 0 0 5 Active losartan (COZAAR) 25 mg tablet take 1 tablet by oral route every day 0 3 Active citalopram (CeleXA) 40 mg tablet take 1 tablet (40MG) by oral route every day 0 3 Active Additional Information Patient not taking.Reported on 11/21/2021 melatonin 10 mg tablet TAKE 1 TABLET BY MOUTH ONCE A DAY 0 3 Active Additional Information Patient not taking.Reported on 11/21/2021 ALPRAZolam (XANAX) 1 mg tablet take 1 tablet (1MG) by oral route 3 times every day NEEDED 0 3 Active Additional Information Patient not taking.Reported on 11/21/2021 metoprolol XL (TOPROL-XL) 25 mg extended release tablet Take 25 mg by mouth daily 2 Active Ozempic 0.25 mg or 0.5 mg(2 mg/1.5 mL) pen injector injection 2 Active glimepiride (AMARYL) 4 mg tablet Take 4 mg by mouth daily 2 Active buPROPion XL (WELLBUTRIN XL) 300 mg 24 hr tablet Take 300 mg by mouth daily 2 Active pravastatin (PRAVACHOL) 20 mg tablet Take 20 mg by mouth daily Active Active Problems Problem Noted Date Diagnosed Date Dysphonia 06/08/2016 Singers' nodes 06/08/2016 Thyroid activity decreased 01/17/2016 Myofascial pain 01/17/2016 Fecal incontinence 01/17/2016 Mixed stress and urge urinary incontinence 01/16 Increased frequency of urination 01/17/2016 Urinary urgency 01/17/2016 Type 2 diabetes mellitus 01/14/2016 Supraventricular tachycardia 05/16/2014 Overview (06/25/2016): SVT Surgical History Surgery Date Site/Laterality Comments HYSTERECTOMY 2007 Hysterectomy VAGINAL HYSTERECTOMY Hysterectomy, vaginal SECTION performance improvement analyst SURGERY Hand Surgery - carpal tunnel both wrist (Added by TW Conv) HEART SURGERY Heart Surgery - heart ablasion (Added by TW Conv) NM DELIVERY ONLY Section - x3 (Added by TW Conv) NM TOTAL ABDOMINAL HYSTERECT W/WO RMVL TUBE OVARY Hysterectomy - for fibroids, cervix and tubes/ovaries remain (Added by TW Conv) Medical History Medical History Date Comments Hypertension Hypertension Hypothyroidism 2006 Hypothyroidism Hx Other Medical 2011 Diabetes Type I I Psoriasis Psoriasis Hx Other Medical tennis elbow Hx Other Medical JOON- on CPAP Hx Other Medical generalized anx iety with anxiety attacks Adiposity Obesity; Comment s: DALIA 05/15/2014 - Hypothyroidism Hypothyroidism; Comments: DALIA 05/15/2014 - Obstructive sleep apnea syndrome JOON; Comments: [facility] 05/15/2014 - Anxiety disorder Anxiety Psoriasis Psoriasis; Comme nts: [facility] 05/15/2014 - Personal history of other me ntal and behavioral disorders History of anxiety - (Added by TW Conv) Personal history of other me ntal and behavioral disorders History of depression - (Add ed by TW Conv) Personal history of other di seases of the circulatory system History of paroxysmal suprav entricular tachycardia - (Added by TW Conv) Family History Medical History Relation Name Comments Heart attack Brother 2 Myocardial Infa rction; Heart attack Brother 3 Myocardial infa rction; Diabetes type II Father 2 Family hist ory of type 2 diabetes mellitus - (Added by TW Conv) Heart disease Father 2 Family history of cardiac disorder - (Added by TW Conv) Hypertension Father 2 Family history of hypertension - (Added by TW Conv) Other Father 2 & Pancreaitis; Cause of : & Pancreaitis Pancreatic cancer Father 2 Family his tory of pancreatic cancer - (Added by TW Conv) Stroke Maternal Grandmother Family history of cerebrovascular accident (CVA) - (Added by TW Conv) COPD Mother 2 COPD; Hypertension Mother 2 Family history of hypertension - (Added by TW Conv) Osteoporosis Mother 2 Family history of osteoporosis - (Added by TW Conv) Other Mother 2 COPD ( smoker). ; Stroke Paternal Grandmother Family history of cerebrovascular accident (CVA) - (Added by TW Conv) Relation Name Status Comments Brother 1 Alive Brother 2 Brother 3 Father 1 Father 2 Maternal Grandmother Mother 1 Alive Mother 2 Paternal Grandmother Social History Tobacco Use Types Packs/Day Years Used Date Smoking Tobacco: Never Tobacco Cessation:Counseling Given: Not Answered Alcohol Use Standard Drinks/Week Comments No 0 (1 standard drink = 0.6 oz pur e alcohol) Comments Unknown Sex and Gender Information Value Date Recorded Sex Assigned at Not on file Legal Sex Female 2:48 AM SOLAR FABRICATION TECHNICIAN Gender Identity Not on file Sexual Orientation Not on file Obstetrics History Last Filed Vital Signs Vital Sign Reading Time Taken Comments Blood Pressure 160/93 11/21/2021 9:00 AM CDT Pulse 78 11/21/2021 9:00 AM CDT Temperature - - Respiratory Rate 18 11/21/2021 9:00 AM CDT Oxygen Saturation 93% 03/10/2016 7:48 AM SOLAR FABRICATION TECHNICIAN Inhaled Oxygen Concentration - - Weight 100.1 kg (220 lb 9.6 oz) 11/21/2021 9:00 AM CDT Height 160 cm (5' 3) 11/21/2021 9:00 AM CDT Body Mass Index 39.08 11/21/2021 9:00 AM CDT Plan of Treatment Health Maintenance Due Date Last Done Comments Albumin Creatinine Ratio, Urine 1968 Breast Cancer Screening-Mammogram 1968 Colon Cancer Screening-Colonoscopy 1968 Depression Screening 1968 Hemoglobin A1C 1968 Hepatitis C Screening 1968 eGFR 1968 Dilated Eye Exam 1968 Foot Exam 1968 Lipid Panel 1968 Hepatitis B Screening 02/03/1986 Regular Well Visit/Exam 18-02/03/1986 Covid-19 Vaccine ( - season) 2023 03/24/2021, 05/24/2020, 04/26/2020 Pneumococcal vaccine <65 (3 of 3 - PCV20 or PCV21) 06/20/2024 06/21/2019, 01/06/2011 Influenza Vaccine (Season Ended) 2024 DTaP/Tdap/Td Vaccine (3 - Td or Tdap) 02/14/2031, 01/06/2011 Zoster Vaccine Completed 11/06/2020, 02/21/2020 Insurance [facility] Care Teams Production Planner Scheduler Relationship Specialty Start Date End Date Lauri Llanes MD [address] [place] [address] PCP - General 03/06/15
--- OUTSIDE RECORDS SUMMARY | 2024-09-29 10:27 | XMS_ITS | Encounter Summary ---
Author Organization [employer] [facility] Address [address] [place] [address] Care Team Providers Care Media Job Titles Name Role Phone Unavailable Primary Care Provider Unavailabl e Encounter Details Date Type Department Care Team (Late st Contact Info) Description 09/01/2000 Outpatient Historical HIS MD Gildardo MARINO Jorge A, MD [address] [place] [address] [address] [place] [address] Social History Tobacco Use Types Packs/Day Years Used Date Smoking Tobacco: Never Assessed Comments Unknown Sex and Gender Information Value Date Recorded Sex Assigned at Not on file Legal Sex Female 4:52 AM PREMIUM CANCELLATION CLERK Gender Identity Not on file Sexual Orientation Not on file documented as of this encounter Plan of Treatment Not on file documented as of this encounter Visit Diagnoses Not on filedocumented in this encounter
--- OUTSIDE RECORDS SUMMARY | 2024-09-29 10:27 | XMS_ITS | Encounter Summary ---
Author Organization [employer] [facility] Address [address] [place] [address] Care Team Providers Care Gaming Manager Name Role Phone Unavailable Primary Care Provider Unavailabl e Encounter Details Date Type Department Care Team (Late st Contact Info) Description 06/28/2000 Outpatient Historical HIS MD Gildardo MARINO Jorge A, MD [address] [place] [address] [address] [place] [address] Social History Tobacco Use Types Packs/Day Years Used Date Smoking Tobacco: Never Assessed Comments Unknown Sex and Gender Information Value Date Recorded Sex Assigned at Not on file Legal Sex Female 4:52 AM PATTERNMAKER BENCH Gender Identity Not on file Sexual Orientation Not on file documented as of this encounter Plan of Treatment Not on file documented as of this encounter Visit Diagnoses Not on filedocumented in this encounter
--- OUTSIDE RECORDS SUMMARY | 2024-09-29 10:27 | XMS_ITS | Clinical Summary ---
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 Gender Identity Not on file Sexual Orientation Not on file Plan of Treatment Health Maintenance Due Date Last Done Comments DTAP/TDAP/TD VACCINES (1 - Tdap) 02/03/1987 HEPATITIS B VACCINES (1 of 3 - 19+ 3-dose series) 01/20 HPV/Cotest (21-29) 02/03/1989 CERVICAL CANCER SCREENING 02/03/1998 HPV/Cotest (30-65) 02/03/1998 PAP SMEAR 02/03/1998 BREAST CANCER SCREENING 2008 COLORECTAL SCREENING 02/03/2013 Colorectal Cancer Screening 02/03/2013 FIT-DNA Q 3 years 02/03/2013 FIT/FOBT Q 1 year 02/03/2013 Flex Sig/CT Colonography Q 5 years 02/03/2013 ZOSTER VACCINE (1 of 2) 02/03/2018 INFLUENZA VACCINE (#1) 2024
--- OUTSIDE RECORDS SUMMARY | 2024-09-29 10:27 | XMS_ITS | Encounter Summary ---
Author Organization [employer] [facility] Address 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
--- OUTSIDE RECORDS SUMMARY | 2024-09-29 10:27 | XMS_ITS | Referral Summary ---
Author Organization [facility] Address [address] [place] [address] Care Team Providers Care Loading Unit Operator Seating Name Role Phone Lauri Llanes MD Primary Care Provider [phone] Allergies No known active allergies Medications levothyroxine [...] 01/14/2016 Supraventricular tachycardia 05/16/2014 Overview (06/25/2016): SVT Social History Tobacco Use Types Packs/Day Years Used Date Smoking Tobacco: Never Tobacco Cessation:Counseling Given: Not Answered Alcohol Use Standard Drinks/Week Comments No 0 (1 standard drink = 0.6 oz pur e alcohol) Comments Unknown Sex and Gender Information Value Date Recorded Sex Assigned at Not on file Legal Sex Female 2:48 AM MANAGER FRONT Gender Identity Not on file Sexual Orientation Not on file Last Filed Vital Signs Vital Sign Reading Time Taken Comments Blood Pressure 160/93 11/21/2021 9:00 AM CDT Pulse 78 11/21/2021 9:00 AM CDT Temperature - - Respiratory Rate 18 11/21/2021 9:00 AM CDT Oxygen Saturation 93% 03/10/2016 7:48 AM MANAGER FRONT Inhaled Oxygen Concentration - - Weight 100.1 kg (220 lb 9.6 oz) 11/21/2021 9:00 AM CDT Height 160 cm (5' 3) 11/21/2021 9:00 AM CDT Body Mass Index 39.08 11/21/2021 9:00 AM CDT Plan of Treatment Not on file Insurance [facility] H[facility]/PPO Address: [place] [address] Care Teams Loading Unit Operator Seating Relationship Specialty Start Date End Date Lauri Llanes MD [address] [place] [address] PCP - General 03/06/15
--- OUTSIDE RECORDS SUMMARY | 2024-09-29 10:27 | XMS_ITS | Encounter Summary ---
Author Organization [employer] [facility] Address 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
--- OUTSIDE RECORDS SUMMARY | 2024-09-29 10:27 | XMS_ITS | Encounter Summary ---
Author Organization [employer] [facility] Address [address] [place] [address] Care Team Providers Care Vehicle Assembly Inspector Name Role Phone Unavailable Primary Care Provider Unavailabl e Encounter Details Date Type Department Care Team (Late st Contact Info) Description 06/18/2000 Outpatient Historical HIS MD Gildardo MARINO Jorge A, MD [address] [place] [address] [address] [place] [address] Social History Tobacco Use Types Packs/Day Years Used Date Smoking Tobacco: Never Assessed Comments Unknown Sex and Gender Information Value Date Recorded Sex Assigned at Not on file Legal Sex Female 4:52 AM SAFETY PERSON Gender Identity Not on file Sexual Orientation Not on file documented as of this encounter Plan of Treatment Not on file documented as of this encounter Visit Diagnoses Not on filedocumented in this encounter
--- OUTSIDE RECORDS SUMMARY | 2024-09-29 10:27 | XMS_ITS | Encounter Summary ---
Author Organization [facility] Address 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
--- OUTSIDE RECORDS SUMMARY | 2024-09-29 10:27 | XMS_ITS | Encounter Summary ---
Author Organization [employer] [facility] Address [address] [place] [address] Care Team Providers Care Insulation Engineman Name Role Phone Unavailable Primary Care Provider Unavailabl e Encounter Details Date Type Department Care Team (Late st Contact Info) Description 07/06/2000 Outpatient Historical HIS MD Gildardo MARINO Jorge A, MD [address] [place] [address] [address] [place] [address] Social History Tobacco Use Types Packs/Day Years Used Date Smoking Tobacco: Never Assessed Comments Unknown Sex and Gender Information Value Date Recorded Sex Assigned at Not on file Legal Sex Female 4:52 AM CONTINUITY WRITER Gender Identity Not on file Sexual Orientation Not on file documented as of this encounter Plan of Treatment Not on file documented as of this encounter Visit Diagnoses Not on filedocumented in this encounter
--- OUTSIDE RECORDS SUMMARY | 2024-09-29 10:27 | XMS_ITS | Encounter Summary ---
Author Organization [employer] [facility] Address [address] [place] [address] Care Team Providers Care Shrub Grower Name Role Phone Unavailable Primary Care Provider Unavailabl e Encounter Details Date Type Department Care Team (Late st Contact Info) Description 05/31/2000 Outpatient Historical HIS MD Gildardo MARINO Jorge A, MD [address] [place] [address] [address] [place] [address] Social History Tobacco Use Types Packs/Day Years Used Date Smoking Tobacco: Never Assessed Comments Unknown Sex and Gender Information Value Date Recorded Sex Assigned at Not on file Legal Sex Female 4:52 AM HEALTH ADVOCATE Gender Identity Not on file Sexual Orientation Not on file documented as of this encounter Plan of Treatment Not on file documented as of this encounter Visit Diagnoses Not on filedocumented in this encounter
--- OUTSIDE RECORDS SUMMARY | 2024-09-29 10:27 | XMS_ITS | Clinical Summary ---
Author Organization [facility] Address [address] [place] [address] Care Team Providers Care Manual Tester Name Role Phone Lauri Llanes MD Primary Care Provider [phone] Allergies No known active allergies Medications metFORMIN ER, OSM, (FORTAMET) 500 MG 24 hr tablet Take 1 tablet (500 mg total) by mouth daily with breakfast. Active semaglutide (OZEMPIC 0.25/0.5 MG/DOSE) 2 MG/1.5ML injection (PEN)(UNAVAILABL E - DO NOT ORDER) Inject into the skin every 7 days. Active metoprolol tartrate (LOPRESSOR) 50 MG tablet Take 1 tablet (50 mg total) by mouth daily. Active losartan (COZAAR) 25 MG tablet Take 1 tablet (25 mg total) by mouth daily. Active levothyroxine (SYNTHROID) 200 MCG tablet Take 1 tablet (200 mcg total) by mouth every other day. Active levothyroxine (SYNTHROID) 100 MCG tablet Take 1 tablet (100 mcg total) by mouth every other day. Active buPROPion XL (WELLBUTRIN XL) 300 MG 24 hr tablet Take 1 tablet (300 mg total) by mouth daily. Active cetirizine (ZYRTEC) 10 MG tablet Take 1 tablet (10 mg total) by mouth daily. Active Immunizations Immunization Administration Dates Next Due MODERNA COVID-19 (12+) MRNA, LNP-S, PF, 100 MCG/ 0.5 ML DOSE 05/24/2020,04/26/2020 Social History Tobacco Use Types Packs/Day Years Used Date Smoking Tobacco: Never Smokeless Tobacco: Never Tobacco Cessation:Counseling Given: Not Answered Alcohol Use Standard Drinks/Week Comments Never 0 (1 standard drink = 0.6 oz pur e alcohol) Comments Unknown Sex and Gender Information Value Date Recorded Sex Assigned at Not on file Legal Sex Female 4:14 PM CDT Gender Identity Not on file Sexual Orientation Not on file Last Filed Vital Signs Vital Sign Reading Time Taken Comments Blood Pressure 166/81 08/06/2022 11:45 AM CDT Pulse 86 08/06/2022 11:45 AM CDT Temperature 36.1 C (97 F) 08/06/2022 11:45 AM CDT Respiratory Rate 17 08/06/2022 11:45 AM CDT Oxygen Saturation 98% 08/06/2022 11:45 AM CDT Inhaled Oxygen Concentration - - Weight 86.2 kg (190 lb) 08/06/2022 10:18 AM CDT Height 160 cm (5' 3) 08/06/2022 10:18 AM CDT Body Mass Index 33.66 08/06/2022 10:18 AM CDT Plan of Treatment Health Maintenance Due Date Last Done Comments Cervical Cancer Screening Pa p Smear (Age 30 to 64) Every 3 Years 1968 Colorectal Cancer Screening Colonoscopy (10 Years) 1968 Annual Physical 02/03/1971 Hepatitis C 02/03/1986 DTaP, Tdap and Td Vaccines ( 1 - Tdap) 02/03/1987 Hepatitis B Vaccines (1 of 3 - 19+ 3-dose series) 02/03/1987 Cervical Cancer Screening Pa p with HPV Testing (Age 30 to 64) Every 5 Years 02/03/1998 Cervical Cancer Screening wi th HPV 02/03/1998 Mammogram Screening 2008 Zoster Vaccines (2 of 2) 04/17/2020 02/21/2020 Pneumococcal Vaccine: 50+ Years (2 of 2 - PPSV23) 06/20/2020 06/21/2019 COVID-19 Vaccine ( - 2023-2 5 season) 2023 05/24/2020, 04/26/2020 Meningococcal B Vaccine Aged Out No l onger eligible based on patient's age to complete this topic Meningococcal Vaccine Aged Out No yuri jaylon eligible based on patient's age to complete this topic RSV Immunizations Under 20 Months Aged Out No longer eligible b ased on patient's age to complete this topic Insurance [facility] Care Teams Manual Tester Relationship Specialty Start Date End Date Lauri Llanes MD [address] [place] [address] PCP - General INTERNAL MEDICINE 08/06/22
== END 2024-09-29 10:24 | disposition home or self-care (01) ==
LOC: CHSIMG 10:24
PROVIDERS: PCP Internal Medicine; Visit Provider Internal Medicine
DX: Z12.31 Encounter for screening mammogram for malignant neoplasm of breast (principal)
CPT/HCPCS: 77063; 77067

== ENCOUNTER 2025-02-20 14:10 | Outpatient (CLI) | payer OTHER, SELFPAY ==
--- NOTE | ~2025-02-20 | CT_ITS ---
CT abdomen pelvis w con INDICATION:abdominal pain/diarrhea . COMPARISON: None. TECHNIQUE: Axial images of the abdomen and pelvis were obtained following infusion of 100 mL Isovue 300. Dose optimization technique was utilized. FINDINGS: The lung bases are clear. The liver parenchyma is unremarkable. No intrahepatic mass or ductal dilatation is evident. The gallbladder is unremarkable. The pancreas and spleen are normal in appearance. The adrenal glands are symmetric in size. The kidneys demonstrate symmetric uptake and excretion of contrast. No cystic mass is evident. There is no solid mass. There is no hydronephrosis. The stomach and bowel loops are unremarkable. The appendix is normal in appearance. The bladder and rectum are normal. No free intraperitoneal fluid or air is evident. There is no significant retroperitoneal lymphadenopathy. The aorta, visceral vessels and renal arteries demonstrate normal caliber and patency. The lower thoracic and lumbar vertebrae are in normal alignment. IMPRESSION: No acute abnormality is noted in the abdomen and pelvis. All CT scans at this facility are performed using low dose modulation techniques as appropriate to perform exam including the following: automated exposure control; use of iterative reconstruction technique; adjustment of the mA and/or kV according to patient size (this includes techniques or standardized protocols for targeted exams where dose is matched to indication/reason for exam). Reviewed, dictated and finalized at location S. TESTING TECHNICIAN IMPRESSION: No acute abnormality is noted in the abdomen and pelvis. All CT scans at this facility are performed using low dose modulation techniqu es as appropriate to perform exam including the following: automated exposure c ontrol; use of iterative reconstruction technique; adjustment of the mA and/or kV according to patient size (this includes techniques or standardized protocol s for targeted exams where dose is matched to indication/reason for exam).
[2025-02-20 14:53] LABS: Estimated Glomerular Filt Rate 46
== END 2025-02-20 14:11 | disposition home or self-care (01) ==
LOC: MICIMG 14:11
PROVIDERS: PCP Internal Medicine; Visit Provider Internal Medicine
DX: R10.9 Unspecified abdominal pain (principal); R19.7 Diarrhea, unspecified
CPT/HCPCS: 74177; Q9967